=== PATIENT | male | born 1985 | race Caucasian/White ===

== ENCOUNTER 2016-08-28 10:51 | Emergency (ER) | payer SELFPAY ==
[2016-08-28] MEDS ORDERED: NO HOME MEDICATION (11:07)
[2016-08-28] MEDS ORDERED: KEFLEX500 M4 PO (11:14)
[2016-08-28] MEDS ORDERED: BACTRIM DS TAB1 EAC2 PO (11:14)
== END 2016-08-28 11:20 ==
LOC: EDMED 10:51
DX: L03.111 Cellulitis of right axilla (principal)